=== PATIENT | female | born 2000 ===

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

== ENCOUNTER 2018-02-27 18:54 | Emergency (ER) | payer MEDICAID ==
[2018-02-27 19:50] VITALS: RESP 16
--- NOTE | 2018-02-27 20:42 | ED PDOC ---
HPI: Abdomen Time Seen by Provider: 02/27/18 20:11 Chief Complaint (Nursing): Abdominal Pain History Per: Patient Additional Complaint(s): Pt. states 1 hour [employer]MENT she developed RLQ pain which radiates slightly to LLQ. States she attempted to have a BM without any relief in pain. Further reports she is currently 6 weeks and has her 1st OB visit on 2017. Denies vaginal bleeding, dysuria, hematuria, frequency, fever, N/V/D, melena, hematochezia, BRBPR, previous abdominal surgeries. Past Medical History Reviewed: Historical Data, Nursing Documentation, Vital Signs Vital Signs: Last Vital Signs Temp 98.2 F 02/28/18 00:23 Pulse 81 02/28/18 00:23 Resp 16 02/28/18 00:23 BP 121/78 02/28/18 00:23 Pulse Ox 99 02/28/18 00:23 - Surgical History Surgical History: No Surg Hx - Family History Family History: States: No Known Family Hx - Allergies Allergies/Adverse Reactions: Allergies Allergy/AdvReac Type Severity Reaction Status Date / Time amoxicillin Allergy RASH Verified 07/11/17 21:18 Penicillins Allergy ANAPHYLAXIS Verified 02/27/18 19:47 Review of Systems ROS Statement: Except As Marked, All Systems Reviewed And Found Negative Gastrointestinal: Positive for: Abdominal Pain Physical Exam - Physical Exam Appears: Positive for: Well, Non-toxic, No Acute Distress Skin: Positive for: Normal Color, Warm. Negative for: Rash Eye Exam: Positive for: Normal appearance. Negative for: Scleral icterus Cardiovascular/Chest: Positive for: Regular Rate, Rhythm Respiratory: Positive for: Normal Breath Sounds. Negative for: Respiratory Distress Gastrointestinal/Abdominal: Positive for: Bowel Sounds, Soft, Tenderness ( minimal RLQ tenderness only to deep palpation) Back: Positive for: Normal Inspection. Negative for: L CVA Tenderness, R CVA Tenderness Neurologic/Psych: Positive for: Alert, Oriented (x 3) - Laboratory Results Result Diagrams: 02/27/18 22:20 02/27/18 22:20 - ECG O2 Sat by Pulse Oximetry: 100 - Progress ED Course And Treament: Case d/w Dr. Dela Cruz who agrees with care. Labs, OB US ordered. Pt. kept NPO. 0018 On re-evaluation, pt. sleeping comfortably. Reports good relief of pain. Abd soft and non-tender to deep palpation. Negative Psoas and obturator sign. Case d/w Dr. Dela Curz who agrees with care and disposition. Disposition - Clinical Impression Clinical Impression: Abdominal pain during - Patient ED Disposition Is Patient to be Admitted: No - Disposition Referrals: [facility] [Outside] Disposition: Routine/Home Disposition Time: 00:19 Condition: IMPROVED Additional Instructions: Follow up with PMD for further evaluation. Return to ED immediately if symptoms worsen. Instructions: - The First Month Forms: [employer] (Portuguese)
--- NOTE | 2018-02-27 22:23 | US ---
EXAM: US First Trimester, Transabdominal CLINICAL HISTORY: 17 years old, female; Pain; Other: Rt pelvic pain; Gestational age or lmp: 01/01/18; ; Additional info: R sided pelvic pain TECHNIQUE: Real-time transabdominal obstetrical ultrasound of the maternal pelvis and a first trimester with image documentation. COMPARISON: No relevant prior studies available. FINDINGS: Gestation: Single live intrauterine gestation. heart rate of 165 beats per minute. [place]-rump length of 1.2 cm, correlating with gestational age of 7 weeks 3 days. Uterus/cervix: No subchorionic hemorrhage. Closed cervix. Ovaries: Normal ovaries. No adnexal masses. Free fluid: No significant free fluid. IMPRESSION: 1. Single live intrauterine gestation.
[2018-02-27 22:28] LABS: SQUAMOUS EPITHIAL 1 /hpf (0-5); URINE BACTERIA RARE (<OCC); URINE BILIRUBIN NEGATIVE (NEGATIVE); URINE BLOOD NEGATIVE (NEGATIVE); URINE CLARITY CLEAR (Clear); URINE COLOR STRAW (YELLOW); URINE GLUCOSE (UA) NEG (Normal); URINE LEUKOCYTE ESTERASE NEG Leu/uL (Negative); URINE PROTEIN NEGATIVE (NEGATIVE); URINE UROBILINOGEN 0.2-1.0 mg/dL (0.2-1.0)
[2018-02-27 22:34] LABS: BASO # 0.1 K/uL (0.0-0.2); BASO % 0.8 % (0.0-2.0); EOS # 0.1 K/uL (0.0-0.7); HEMOGLOBIN 13.5 g/dL (12.0-16.0); MEAN CELL VOLUME 91.2 fl (81.0-99.0); MEAN CORPUSCULAR HEMOGLOBIN 32.3 pg (27.0-31.0); MEAN CORPUSCULAR HGB CONC 35.5 g/dL (33.0-37.0); MONO # 0.8 K/uL (0.0-0.8); MONO % 6.3 % (0.0-10.0); NEUT # 8.4 K/uL (1.8-7.0); NEUT % 61.9 % (50.0-75.0); NRBC % 0.4 % (0.0-0.0); RBC 4.16 Mil/uL (3.80-5.20); RED CELL DISTRIBUTION WIDTH 12.7 % (11.5-14.5); WHITE BLOOD COUNT 13.5 K/uL (4.8-10.8)
[2018-02-27 22:36] LABS: CALCIUM 9.1 mg/dL (8.4-10.2); GFR AFRICAN-AMERICAN > 60; GFR NON-AFRICAN AMERICAN > 60
[2018-02-27 23:09] LABS: ALB/GLOB RATIO 1.2 (1.0-2.1); ALBUMIN 4.3 g/dL (3.5-5.0); ALT/SGPT 72 U/L (9-52); AST/SGOT 76 U/L (14-36); BLOOD UREA NITROGEN 10 mg/dl (7-17)
[2018-02-28 00:24] VITALS: BP 121/78; PULSE 81; TEMP 98.2
[2018-02-28 06:10] VITALS: O2SAT 100
== END 2018-02-28 00:24 | disposition home or self-care (01) ==
LOC: H.ER 18:54
DX: O26.899 Other specified pregnancy related conditions, unspecified trimester (principal); Z88.0 Allergy status to penicillin